=== PATIENT | female | born 1975 | race African-American/Black ===

== ENCOUNTER 2023-08-13 21:23 | Emergency (ER) | payer MEDICAID ==
[~2023-08-13] VITALS: Ht 170.2 cm; Wt 91.0 kg
[~2023-08-13 21:23] MED LIST: PRENATAL
[2023-08-13 21:34] VITALS: BP 99/64; RESP 16; TEMP 98.5; O2SAT 99
[2023-08-13 21:55] VITALS: PULSE 86
[2023-08-13] MEDS ORDERED: METH-653 MT (23:16)
[2023-08-13] MEDS ORDERED: IBUP-2029 MT (23:16)
== END 2023-08-13 23:57 | disposition home or self-care (01) ==
LOC: ER 21:23
DX: S06.0X0A Concussion without loss of consciousness, initial encounter (principal); W22.8XXA Striking against or struck by other objects, initial encounter; Y93.89 Activity, other specified; Y92.89 Other specified places as the place of occurrence of the external cause; Y99.8 Other external cause status
CPT/HCPCS: 99283